=== PATIENT | female | born 1960 | race Caucasian/White ===

== ENCOUNTER → 2017-09-09 | Day surgery (SDC) | payer BC ==
[~2017-09-09] MED LIST: ESTROGEN CREAM VG; FENTANYL CITRATE/PF 100MCG/2 ML INJ ONE; LUNESTA3 MG PO; MIDAZOLAM HCL 2 MG/2 ML VIAL ONE; OR PHACO EYE KIT ONE; PREOP PHACO EYE KIT ONE; PROGESTERONE200 MG PO; T3/T4 COMPOUND PO; TESTOSTERONE CREAM
== END | disposition home or self-care (01) ==
LOC: OR 08:54
PROVIDERS: ATTEND Ophthalmology
DX: H25.12 Age-related nuclear cataract, left eye (principal); E03.9 Hypothyroidism, unspecified; K21.9 Gastro-esophageal reflux disease without esophagitis; G47.00 Insomnia, unspecified
CPT/HCPCS: 66984; J2250; V2632